=== PATIENT | male | born 1995 | race Caucasian/White ===

== ENCOUNTER 2022-02-11 12:58 | Emergency (ER) | payer BC, SELFPAY ==
[2022-02-11 13:12] VITALS: BP 137/85; PULSE 76; RESP 14; TEMP 36.7; O2SAT 98; BMI 26.0
--- NOTE | 2022-02-11 14:56 | XRR_ITS ---
PROCEDURE INFORMATION: Exam: XR Right Shoulder Exam date and time: 02/11/2022 3:11 PM Age: 26 years old Clinical indication: Right; Patient HX: PT felt his R shoulder are pop while wrestling now w shoulder/chest pain; Additional info: Injury TECHNIQUE: Imaging protocol: XR Right shoulder. Views: 2 or more views. COMPARISON: CR (CHEST, ) 02/11/2022 3:10 PM FINDINGS: Bones/joints: Normal. Soft tissues: Normal. XR/XR shoulder RT min 2V* [id number] IMPRESSION: No acute findings.
--- NOTE | 2022-02-11 14:56 | XRR_ITS ---
PROCEDURE INFORMATION: Exam: XR Chest Exam date and time: 02/11/2022 3:10 PM Age: 26 years old Clinical indication: Injury or trauma; Blunt trauma (contusions or hematomas); Patient HX: PT felt his R shoulder are pop while wrestling now w shoulder/chest pain TECHNIQUE: Imaging protocol: XR of the chest. Views: 1 view. COMPARISON: No relevant prior studies available. FINDINGS: Lungs: Unremarkable. No consolidation. Pleural spaces: Unremarkable. No pleural effusion. No pneumothorax. Heart/Mediastinum: Unremarkable. No cardiomegaly. Bones/joints: Unremarkable. XR/XR chest 1V portable [id number] IMPRESSION: No acute findings.
--- NOTE | 2022-02-11 14:57 | ED_ITS ---
HPI - Extremity Problem General: Chief complaint: Extremity Injury, Upper Stated complaint: chest injury from wrestling Time Seen by Provider: 02/11/22 13:20 History of Present Illness: Patient states he was wrestling with his body about 12:00 last night. Patient said his body had him in an arm bar and patient was standing over his colt. He pulled his arm away and felt immediate pain to his right pectoralis area and he felt a pop .It continues to bother him today and he is unable to lift his shoulder due to the pain in his pectoralis area, patient is active boat builder and repairer. Associated symptoms: Deny chest pain, fever(s) or rash Review of Systems Narrative: Injured while wrestling with his colt last night Const: Denies: fever(s) or chills Eyes: Denies: eye discomfort ENMT: Denies: throat pain Card: Denies: chest pain or dyspnea on exertion Resp: Denies: dyspnea or non-productive cough GI: Reports: abdominal pain; Denies: change in bowel habits : Denies: difficulty urinating Musc: Reports: muscle weakness (Right pec with tenderness); Denies: joint pain Skin/Breast: Denies: rash Neuro: Denies: headache(s) Psych: Denies: anxiety or depression Bill/Lymph: Denies: easy bruising or enlarged lymph nodes Physical Exam Const: COMMON NORMALS: no acute distress and patient oriented x3 GENERAL APPEARANCE: cooperative, well kempt and well developed HENMT: COMMON NORMALS: normocephalic, external ears normal and Normal external nose present HEAD & SCALP: normocephalic NOSE: Normal external nose present EXTERNAL EAR: Yes external ears normal MOUTH: Normal oral and palatal mucosa present THROAT: posterior oropharynx normal Eye: COMMON NORMALS: EOMs intact bilaterally and conjunctivae normal GENERAL EYE: appearance normal, both eyes and all related structures CONJ UNCTIVA: Yes conjunctivae normal SCLERA: sclerae normal Neck/C-Spine: COMMON NORMALS: full ROM GENERAL: Yes normal visual inspection Lymph: LYMPHATIC: no lymphadenopathy noted Chest: OTHER: Newness to the right pectoralis area. Upper part. Clavicles intact. Shoulder appears intact. Cannot lift right arm more than 30 degrees due to pain that occurs in his pectoralis area. Resp: COMMON NORMALS: normal respiratory effort and No use of accessory muscles EFFORT & INSPECTION: Yes able to speak in complete sentences Cardio: COMMON NORMALS: regular rate RATE: regular rate GI: INSPECTION: Yes normal to inspection Back/Pelvis: COMMON NORMALS: thoraco-lumbar ROM normal Extremity: COMMON NORMALS: normal to inspection and full ROM Neuro: COMMON NORMALS: patient oriented x3 SPEECH: speech normal GAIT: Yes Normal gait present Psych: COMMON NORMALS: mental status grossly normal APPEARANCE: Yes well kempt ACTIVITY/MOTOR BEHAVIOR: Yes appropriate eye contact Skin: RASHES: no rashes Course Vital Signs: Vital signs: Vital Signs Temperature 98.0 F 02/11/22 13:12 Pulse Rate 76 02/11/22 13:12 Respiratory Rate 14 02/11/22 13:12 Blood Pressure 137/85 02/11/22 13:12 Pulse Oximetry 98 02/11/22 13:12 MDM - Extremity (Nontraumatic) Medical Decision Making Patient presents with what sounds like a pectoralis strain or tear on the right side. Patient does not have ecchymosis or bulging of the the muscle fibers on that side. But does have tenderness throughout the whole pectoralis muscle. Has limited range of motion of lifting shoulder due to discomfort. X-rays are negative. Discharge Plan Discharge Patient Disposition: Home Clinical Impression: Pectoral muscle rupture Condition: Stable Prescriptions: New tramadol 50 mg tablet 50 mg PO TID PRN (Reason: pain) Qty: 14 0RF Discharge Orders: Discharge ED (Routine); Ordered 02/11/22 Ordered By: John Patel Discharge Diet: Usual diet Discharge Activity: Limit activity as instructed Patient Instructions: Muscle Strain (ED) Activity Restrictions/Additional Instructions: Follow-up with medical provider as directed. Take medications as prescribed. Return to the ER or your medical provider if condition worsens. Please read and understand discharge instructions. If any questions ask please. Wear sling daily. Hospital contact with a follow-up appointment with orthopedic clinic Coding Level of Care Code ED [employer]ach [employer] for [employer] Exam Comprehensive
[2022-02-11 15:35] VITALS: BP 131/79; PULSE 73; RESP 14; O2SAT 94
--- NOTE | 2022-02-13 15:07 | DCPLANNER ---
Addendum entered by Ashleigh Madrid 02/24/22 18:12: Patient had a follow up appointment scheduled for 02.22.22 with ortho - patient did not attend appointment. Addendum entered by Ashleigh Madrid 02/17/22 09:13: Patient has a follow up appointment scheduled for Tuesday, February 22, 2022 at 9:[address] Solis at ortho. Clinic will call patient with appointment information. Original Note: community marketing manager had message to schedule a follow up appointment for patient with ortho. community marketing manager sent patients information to the front office staff at ortho. Patients information will be printed and reviewed. Clinic will call patient with appointment information.
== END 2022-02-11 15:32 | disposition home or self-care (01) ==
PROVIDERS: Emergency Provider Nurse Practitioner Family
DX: S29.011A Strain of muscle and tendon of front wall of thorax, initial encounter (principal); X50.1XXA Overexertion from prolonged static or awkward postures, initial encounter; Y93.72 Activity, wrestling
CPT/HCPCS: 71045; 73030; 99283